=== PATIENT | male | born 1940 | race Caucasian/White ===

== ENCOUNTER 2016-04-26 13:45 | Outpatient (RCR) | payer MEDICARE ==
--- OUTSIDE RECORDS SUMMARY | 2016-03-29 13:36 | XMS REPORT | Continuity of Care Document ---
Author Author [facility] Organization [facility] Address Unknown Phone Unavailable Care Team Providers Care Etl Programmer Name Role Phone Dpt Edilma Tillman PCP [phone] Source Comments Some departments are not documenting in the electronic medical record. If you do not see the information that you expected, contact Release of Information in the Health Information Management department at [phone] for further assistance in locating additional records.[facility] Active Allergies and Adverse Reactions No Known Allergies Current Medications Prescription Sig. Disp. Refills Start End Date Status Date diphenhydrAMINE Take 12.5 mg by mouth Active (BENADRYL) 12.5 mg/5 mL every 6 hours as needed. elixir simvastatin (ZOCOR) 20 mg Take 20 mg by mouth at Active tablet bedtime daily. lisinopril (PRINIVIL; Take 10 mg by mouth Active ZESTRIL) 10 mg tablet daily. aspirin EC 325 mg tablet Take 325 mg by mouth at Active bedtime daily. Take with food. vitamins, multiple tablet Take 1 Tab by mouth Active daily. calcium carbonate/vitamin Take 2 Tabs by mouth Active D-3 (OSCAL-500+D) 1250 daily. Calcium Carb mg/200 unit tablet 1250mg delivers 500mg elemental Ca Vit C-Vit Take 1 Cap by mouth Active I-Wyyyju-Ohx-OM-3 daily. (OCUVITE) 734-41-7-150 cn-kdjw-xf-mg cap VITAMIN E-SELENIUM PO Take 2 Caps by mouth Active daily. Tfqdmujmwsz-SWO-Keozjeecz Take 2 Tabs by mouth Active in 400-200-333 mg tab daily. HYDROcodone/acetaminophen Take 1 Tab by mouth every 15 Tab 0 03/06/19 Active (NORCO) 5/325 mg tablet 4 hours as needed for 17 Pain Earliest Fill Date: 03/06/16 LISINOPRIL PO Take by mouth. 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 Documentation Otolaryngology Morenita Gamble MD 03/07/2016 Documentation Otolaryngology Morenita Gamble MD 03/06/2016 [facility] Morenita Gamble MD Dysphonia Encounter 03/06/2016 Surgery Morenita Gamble MD DIRECT LARYNGOSCOPY EXCISION LESION 03/01/2016 [facility] Radiology Morenita Gamble MD Encounter 03/01/2016 PAC Office Anesthesiology Morenita Gamble MD Preoperative examination Visit 03/01/2016 Clinical Otolaryngology Xena Du MA, CCC-SLP Dysphonia ( Primary Dx); Support 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 Anesthesia Trinidad Riddle APRN Event 02/28/2016 Telephone Otolaryngology Morenita Gamble MD Surgery - SCHEDULING 02/22/2016 Clinical Otolaryngology Rosi Mendoza, Dysphonia ( Primary Dx); Support PAU LIAO 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 Office Visit Otolaryngology Morenita Gamble MD Preoperative examination (Primary Dx); Dysphonia; 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 Prep for Case Otolaryngology Morenita Gamble MD Social History Tobacco Use Types Packs/Day Years Used Date Never Smoker Smokeless Tobacco: Never Used Alcohol Use Drinks/Week oz/Week Comments No 0 Standard 0.0 drinks or equivalent Last Filed Vital Signs Vital Sign Reading Time Taken Blood Pressure 132/77 03/16/2016 9:20 AM [employer] OFFICER Pulse 69 03/16/2016 9:20 AM [employer] OFFICER Temperature 36.4 C (97.5 F) 03/06/2016 12:24 PM [employer]ICER Respiratory Rate - - Height 1.727 m (5' 8") 03/16/2016 9:20 AM [employer] OFFICER Weight 76.749 kg (169 lb 3.2 oz) 03/16/2016 9:20 AM [employer] OFFICER Body Mass Index 25.73 03/16/2016 9:20 AM [employer] OFFICER Oxygen Saturation 95% 03/06/2016 1:30 PM [employer] OFFICER Plan of Care Health Maintenance Due Date Last Done Comments Physical (Comprehensive) 1947 Exam Pertussis Vaccine 1952 Tetanus Vaccine 1958 Colorectal Cancer 08/26/1991 Screening Shingles Vaccine 2001 Prevnar/Pneumovax (#1) 2006 Influenza Vaccine 10/20/2015 Procedures from Last 3 Months Procedure Name Priority Date/Time Associated Diagnosis Comments VIDEO STROBOSCOPY Routine 03/16/2016 Dysphonia 11:09 AM [employer]ICER Sulcus vocalis ECG-SCAN 03/07/2016 Results for this 3:25 PM [employer]ICER procedure are in the results section. TELEMETRY STRIPS-SCAN 03/07/2016 Results for this 2:49 PM [employer]ICER procedure are in the results section. DIRECT LARYNGOSCOPY 03/06/2016 Dysphonia EXCISION LESION 11:40 AM [employer] OFFICER VIDEO STROBOSCOPY Routine 03/01/2016 1:22 PM [employer]ABILITY OFFICER ACOUSTIC ANALYSIS Routine 03/01/2016 12:00 AM [employer] OFFICER VIDEO STROBOSCOPY Routine 02/22/2016 Dysphonia 12:00 AM [employer] OFFICER Vocal cord cyst Results from Last 3 Months VIDEO STROBOSCOPY (03/16/2016 11:09 AM)ECG-SCAN (03/07/2016 3:25 PM) Narrative Ordered by an unspecified provider. TELEMETRY STRIPS-SCAN (03/07/2016 2:49 PM) Narrative Ordered by an unspecified provider. CHEST 2 VIEWS (03/01/2016 4:09 PM) Impressions No acute cardiopulmonary abnormality. Approved by Nazia Little M.D. on 03/01/2016 5:02 PM By my electronic signature, I attest that I have personally reviewed the images for this examination and formulated the interpretations and opinions expressed in this report Finalized by Morales Bailey M.D. on 03/02/2016 8:59 AM. Dictated by Nazia Little M.D. on 03/01/2016 4:21 PM. Narrative CHEST 2 VIEWS Clinical Indication:pre op exam.Hypertension. History of collapsed lung. Comparison: None. Findings: The cardiac silhouette is within normal limits. There is no pulmonary vascular congestion. No consolidative opacity, pleural effusion, or pneumothorax is identified. The thoracic spine degenerative changes are noted. Procedure Note Interface, Radiant Results - SatMar 02, 2016 9:02 AM [employer]AIN[employer] OFFICER CHEST 2 VIEWS Clinical Indication: pre op exam. Hypertension. History of collapsed lung. Comparison: None. Findings: The cardiac silhouette is within normal limits. There is no pulmonary vascular congestion. No consolidative opacity, pleural effusion, or pneumothorax is identified. The thoracic spine degenerative changes are noted. IMPRESSION No acute cardiopulmonary abnormality. Approved by Nazia Little M.D. on 03/01/2016 5:02 PM By my electronic signature, I attest that I have personally reviewed the images for this examination and formulated the interpretations and opinions expressed in this report Finalized by Morales Bailey M.D. on 03/02/2016 8:59 AM. Dictated by Nazia Little M.D. on 03/01/2016 4:21 PM. CBC (03/01/2016 3:36 PM) Component Value Range White Blood Cells 6.6 4.5-11.0 K/UL RBC 4.54 4.4-5.5 M/UL Hemoglobin 13.6 13.5-16.5 GM/DL Hematocrit 42.1 40-50 % MCV 92.8 80-100 FL MCH 29.9 26-34 PG MCHC 32.2 32.0-36.0 G/DL RDW 13.5 11-15 % Platelet Count 263 150-400 K/UL MPV 6.8 (L) 7-11 FL Specimen Blood BASIC METABOLIC PANEL (03/01/2016 3:36 PM) Component Value Range Sodium 138 137-147 MMOL/L Potassium 4.5 3.5-5.1 MMOL/L Chloride 105 98-110 MMOL/L CO2 26 21-30 MMOL/L Anion Gap 7 3-12 Glucose 102 (H) 70-100 MG/DL Blood Urea Nitrogen 18 7-25 MG/DL Creatinine 1.21 0.4-1.24 MG/DL Calcium 9.0 8.5-10.6 MG/DL eGFR Non 59 (L)Comment: >60 mL/min The eGFR is not validated for use in drug dosing adjustments. Continue to use estimated creatinine clearance per dosing reference text. Please contact the Clinical Pharmacist for questions. eGFR >60Comment: >60 mL/min The eGFR is not validated for use in drug dosing adjustments. Continue to use estimated creatinine clearance per dosing reference text. Please contact the Clinical Pharmacist for questions. Specimen Blood ACOUSTIC ANALYSIS (03/01/2016)VIDEO STROBOSCOPY (02/22/2016)
[~2016-04-26 13:45] MED LIST: CALC-794 PO; GLUC1TAB29 PO; HYDR-3454 PO; MULT-974 PO; [UNRECOGNIZED DRUG - OTHER] PO
== END 2016-04-26 14:45 | disposition home or self-care (01) ==
PROVIDERS: ATTEND Otolaryngology
DX: R49.0 Dysphonia (principal)

== ENCOUNTER 2016-11-06 07:53 | Outpatient (RCR) | payer MEDICARE ==
[~2016-11-06 07:53] MED LIST changes: +BENZOCAINE 20% SPRAY (HURRICANE) 60 ML CAN MT PRN; +HURRICAINE EXT TUBE (BENZOCAINE) XX ONE; +HURRICAINE EXT TUBE (BENZOCAINE) XX PRN; +LIDOCAINE UROJET 2% GEL 10 ML PKG TOP PRN
== END 2016-11-17 | disposition home or self-care (01) ==
LOC: ONC 07:53
PROVIDERS: ATTEND Radiology Radiation Oncology
DX: Z51.0 Encounter for antineoplastic radiation therapy (principal); C32.0 Malignant neoplasm of glottis
CPT/HCPCS: 77280; 77290; 77295; 77300; 77334; 77336; 77417; 92511; 99215

== ENCOUNTER 2017-01-03 14:48 | Outpatient (RCR) | payer MEDICARE ==
[~2017-01-03 14:48] MED LIST changes: -BENZOCAINE 20% SPRAY (HURRICANE) 60 ML CAN MT PRN; -HURRICAINE EXT TUBE (BENZOCAINE) XX ONE; -HURRICAINE EXT TUBE (BENZOCAINE) XX PRN; -LIDOCAINE UROJET 2% GEL 10 ML PKG TOP PRN
== END 2017-04-03 | disposition home or self-care (01) ==
LOC: ONC 14:48
PROVIDERS: ATTEND Radiology Radiation Oncology
DX: Z51.0 Encounter for antineoplastic radiation therapy (principal); C32.0 Malignant neoplasm of glottis
CPT/HCPCS: 77307; 77334; 99213

== ENCOUNTER → 2020-06-03 | Outpatient (CLI) | payer MEDICARE | LOC: LAB FS 10:55 | PROVIDERS: ATTEND Orthopaedic Surgery | DX: Z01.812 Encounter for preprocedural laboratory examination (principal); Z20.822 Contact with and (suspected) exposure to COVID-19 | CPT/HCPCS: 87635 ==